=== PATIENT | female | born 1965 | race Two or more races ===

== ENCOUNTER → 2024-07-13 | Outpatient (CLI) | payer MEDICAID, SELFPAY ==
--- NOTE | 2024-07-13 08:30 | XR_ITS ---
Examination: CT chest, without intravenous contrast. Sagittal and coronal 2-D reconstructions. Exam date and time: July 13, 2024 0818 hours INDICATIONS: Diagnosis pulmonary coccidiomycosis 3 months ago, coughing 2 weeks CTDI:vol (mGy) 11.6 DLP: (mGycm) 440 Technique: Multiple 3.0 mm axial sections of the chest to been obtained. Bone and lung density settings are obtained. Sagittal and coronal 2-D reconstructions have been obtained. Low dose protocols were performed. One or more of the following dose reduction techniques were used; automated exposure control, adjustment of the mA and/or KV according to patient size, use of iterative reconstruction technique. Findings: 8mm right thyroid nodule No thoracic aortic aneurysm dilatation Pulmonary artery segments are not enlarged No paratracheal tracheobronchial or bronchopulmonary adenopathy Scarring in the anterior segment right upper lobe No lobar pneumonia Scarring in the lingular segment No pleural disease No visualized liver or splenic lesion No gallstones No pancreatic or adrenal mass IMPRESSION: Scarring in the right upper lobe and lingular segment No lobar pneumonia, pulmonary edema or pleural disease
== END | disposition home or self-care (01) ==
PROVIDERS: PCP Physician Assistant; Referring Provider Internal Medicine; Visit Provider Internal Medicine
DX: R91.8 Other nonspecific abnormal finding of lung field (principal)
CPT/HCPCS: 71250

== ENCOUNTER → 2024-07-14 | Outpatient (CLI) | payer MEDICAID, SELFPAY ==
--- NOTE | 2024-07-14 08:15 | XR_ITS ---
Examination: Screening digital mammography, bilateral Computer aided detection 3-D breast Tomosynthesis, bilateral Date and time of exam: July 14, 2024 0808 hours Compared to mammograms dating to March 20, 2019 Indication: Screening Technique: Nonmagnified MLO, CC views of the breasts to been obtained, reconstructed from 3-D Tomosynthesis images. R2 computer aided detection program utilized for evaluation of suspicious masses and/or abnormal calcifications. 3-D Tomosynthesis images obtained. Findings: The breasts are heterogeneously dense, which may obscure small masses 9 mm nodule outer right breast, 6 mm nodule inner right breast 10 mm, 13 mm nodules central left breast CC view upper left breast MLO view These may represent cysts as they are circumscribed and breasts cysts without solid nodules were described on bilateral breast sonography 2022 Impression: BI-RADS Category 0: Incomplete: Need additional imaging evaluation Recommend bilateral breast sonography follow-up to confirm bilateral breast cysts and no solid nodules
== END | disposition home or self-care (01) ==
LOC: CDIM 07:59
PROVIDERS: Referring Provider Physician Assistant; Visit Provider Physician Assistant
DX: Z12.31 Encounter for screening mammogram for malignant neoplasm of breast (principal); R92.8 Other abnormal and inconclusive findings on diagnostic imaging of breast
CPT/HCPCS: 77063; 77067

== ENCOUNTER → 2024-09-15 | Outpatient (CLI) | payer MEDICAID, SELFPAY ==
--- NOTE | 2024-09-15 11:00 | XR_ITS ---
Examination: Breast ultrasound complete, bilateral Date and time of exam: September 15, 2024 1109 hours INDICATIONS: Mammogram July 14, 2024 9 mm nodule outer right breast, 6 mm nodule inner right breast, 10 mm 13 mm nodule central left breast Technique: Real-time grayscale ultrasonographic imaging bilateral breasts, including all 4 quadrants as well as nipple retroareolar and axillary regions. Findings: Sonographic images right breast 3:00 nodule 13 x 9 mm 6:00 nodule 8 x 7 mm No solid nodules Sonographic images left breast 10:00 nodule 11 x 11 mm 11:00 nodule 7 x 8 mm No solid nodules Multiple smaller cysts IMPRESSION: BI-RADS Category 2: Benign findings, including cysts likely corresponding to the mammographic abnormalities
== END | disposition home or self-care (01) ==
PROVIDERS: PCP Physician Assistant; Referring Provider Physician Assistant; Visit Provider Physician Assistant
DX: R92.8 Other abnormal and inconclusive findings on diagnostic imaging of breast (principal); N60.02 Solitary cyst of left breast
CPT/HCPCS: 76641

== ENCOUNTER → 2024-12-14 | Outpatient (CLI) | payer MEDICAID, SELFPAY ==
--- NOTE | 2024-12-14 10:13 | XR_ITS ---
Examination: CT abdomen and pelvis without contrast. Coronal 3-D reconstructions. Sagittal 2-D reconstructions. Date and time of exam:December 14 thousand 25, 1021 hours INDICATIONS: Pelvic pain 3 weeks, post angiogram 2 weeks ago CTDI: vol (mGy): 8.54 DLP: (mGycm): 426 Technique: Axial images of the abdomen have been obtained, 3 mm slice thickness Intravenous contrast material has not been administered. Low dose protocols were performed. One or more of the following dose reduction techniques were used; automated exposure control, adjustment of the mA and/or KV according to patient size, use of iterative reconstruction technique. Findings: No focal liver or splenic lesions No gallstones No pancreatic or adrenal mass No renal or ureteral calculi, no hydronephrosis No bowel obstruction No pericecal inflammatory change Urinary bladder intact Atrophic uterus Mass adjacent to the right common femoral vein measuring 37 mm Moderate osteopenia IMPRESSION: 37 mm mass adjacent to the right common femoral vein Recommend vascular sonography right groin follow-up to confirm hematoma and exclude pseudoaneurysm at this site
== END | disposition home or self-care (01) ==
LOC: CCTX 09:59
PROVIDERS: PCP Internal Medicine; Referring Provider Physician Assistant; Visit Provider Physician Assistant
DX: R19.00 Intra-abdominal and pelvic swelling, mass and lump, unspecified site (principal); R10.2 Pelvic and perineal pain
CPT/HCPCS: 74176